=== PATIENT | male | born 1990 ===

== ENCOUNTER 2019-10-29 02:05 | Emergency (ER) | payer SELFPAY ==
[~2019-10-29] VITALS: Ht 165.1 cm; Wt 75.0 kg
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
[2019-10-29] MEDS ORDERED: AMOX500C PO (02:35)
[2019-10-29] MEDS ORDERED: HYDR-3164 PO (02:35)
[2019-10-29 02:40] VITALS: BP 124/63
== END 2019-10-29 02:42 | disposition home or self-care (01) ==
LOC: ER 02:05
DX: R68.84 Jaw pain (principal); F17.200 Nicotine dependence, unspecified, uncomplicated
CPT/HCPCS: 99283